=== PATIENT | female | born 1960 | race Caucasian/White ===

== ENCOUNTER 2020-06-03 01:13 | Observation (INO) ==
[2020-06-03] MEDS ORDERED: Aspirin 81 MG TAB.CHEW PO ONE (01:29)
[2020-06-03 01:57] LABS: Basophils # 0.1 K/mcL (0.0-0.2); Basophils % 0.6 %; Eosinophils # 0.4 K/mcL (0.0-0.6); Eosinophils % 4.7 %; Hematocrit 40.6 % (35.3-44.9); Hemoglobin 13.4 g/dL (11.5-15.4); Immature Granulocytes % 0.3 % (0-4); Lymphocytes % 33.4 %; Mean Corpuscular Hemoglobin 28.5 pg (28.0-33.3); Mean Corpuscular Volume 86.4 fL (83.0-100.0); Mean Platelet Volume 10.3 fL (9.4-12.4); Monocytes # 0.9 K/mcL (0.0-1.3); Monocytes % 9.7 %; Neutrophils # 4.6 K/mcL (1.6-8.9); Platelet Count 265 K/mcL (140-400); Red Cell Distribution Width 12.8 % (11.5-14.5); Segmented Neutrophils % 51.3 %; White Blood Count 8.9 K/mcL (4.3-11.1)
[2020-06-03] MEDS ORDERED: Nitroglycerin 0.4 MG TAB.SUBL SL PRN (02:13)
[2020-06-03 02:16] LABS: BUN/Creatinine Ratio 11 (6-26); Blood Urea Nitrogen 10 mg/dL (8-23); Calcium 9.2 mg/dL (8.6-10.3); Carbon Dioxide 27 mEq/L (23-29); Chloride 96 mEq/L (98-107); Glucose 156 mg/dL (70-105); Osmolality,Calculated 282 (280-300); Potassium 2.9 mEq/L (3.5-5.1); Sodium 135 mEq/L (136-145); eGFR For African Americans > 60 (> 60); eGFR For Non-African Americans > 60 (> 60)
[2020-06-03 02:17] LABS: Troponin I < 0.03 ng/mL (< 0.04)
[2020-06-03] MEDS ORDERED: Azithromycin 500 MG in 0.9 % Sodium Chloride 250 ML IVPB ONE (02:47)
[2020-06-03] MEDS ORDERED: cefTRIAXone 1,000 MG in Water for inj. (sterile) 10 ML IVP ONE (02:47)
[2020-06-03] MEDS ORDERED: Naloxone 0.4 MG/ML INJ IVP PRN (03:46)
[2020-06-03] MEDS ORDERED: Mag Hydrox/Al Hydrox/Simeth 30 ML UDC PO PRN (03:46)
[2020-06-03] MEDS ORDERED: Acetaminophen 325 MG TABLET PO PRN (03:46)
[2020-06-03] MEDS ORDERED: Morphine Sulfate 2 MG/ML SYRINGE IVP PRN (03:49)
[2020-06-03] MEDS ORDERED: Perflutren Lipid Microsphere 1.3 ML in 0.9 % Sodium Chloride 8.7 ML IVP PRN (03:51)
[2020-06-03] MEDS ORDERED: hydrOXYzine pamoate 25 MG CAPSULE PO PRN (03:52)
[2020-06-03] MEDS ORDERED: Ipratropium/Albuterol Neb 3 ML IH PRN (03:57)
[2020-06-03 03:59] LABS: Adenovirus Not Detected (Not Detect); Bordetella Pertussis Not Detected (Not Detect); Chlamydophila pneumoniae Not Detected (Not Detect); Coronavirus 229E Not Detected (Not Detect); Coronavirus HKU1 Not Detected (Not Detect); Coronavirus NL63 Not Detected (Not Detect); Coronavirus OC43 Not Detected (Not Detect); Human Metapneumovirus Not Detected (Not Detect); Human Rhinovirus/Enterovirus Not Detected (Not Detect); Influenza A Subtype 2009 H1 Not Detected (Not Detect); Influenza B Not Detected (Not Detect); Mycoplasma pneumoniae Not Detected (Not Detect); Parainfluenza Virus 1 Not Detected (Not Detect); Parainfluenza Virus 2 Not Detected (Not Detect); Parainfluenza Virus 3 Not Detected (Not Detect); Parainfluenza Virus 4 Not Detected (Not Detect); Respiratory Syncytial Virus Not Detected (Not Detect)
[2020-06-03] MEDS: Insulin LISPRO 300 UNITS/3 ML VIAL SQ SCH ×2 (05:58→12:00)
[2020-06-03] MEDS ORDERED: *HR* Heparin 5,000 UNIT/ML VIAL SQ SCH (06:00)
[2020-06-03 06:09] LABS: Magnesium 1.7 mg/dL (1.6-2.6)
[2020-06-03 06:10] LABS: Troponin I < 0.03 ng/mL (< 0.04)
[2020-06-03 06:23] LABS: Thyroid Stimulating Hormone 2.174 mcIU/mL (0.340-5.600)
[2020-06-03] MEDS ORDERED: Regadenoson 0.4 MG/5 ML SYRINGE IVP ONE (06:44)
[2020-06-03] MEDS ORDERED: Benzonatate 100 MG CAPSULE PO PRN (06:44)
[2020-06-03] MEDS ORDERED: Doxycycline 100 MG CAPSULE PO SCH (09:00)
[2020-06-03] MEDS ORDERED: Aspirin Enteric Coated 81 MG Tablet PO SCH (09:00)
[2020-06-03] MEDS ORDERED: Cholecalciferol (D-3) 1,000 UNIT (25MCG) TABLET PO SCH (09:00)
[2020-06-03] MEDS ORDERED: amLODIPine 5 MG TABLET PO SCH (09:00)
[2020-06-03] MEDS ORDERED: ARIPiprazole 5 MG TABLET PO SCH (09:00)
[2020-06-03] MEDS ORDERED: lisinopriL 5 MG TABLET PO SCH (09:00)
[2020-06-03 13:07] VITALS: BP 159/81
[2020-06-03 14:31] LABS: BUN/Creatinine Ratio 14 (6-26); Blood Urea Nitrogen 10 mg/dL (8-23); Calcium 8.9 mg/dL (8.6-10.3); Carbon Dioxide 31 mEq/L (23-29); Chloride 99 mEq/L (98-107); Glucose 144 mg/dL (70-105); Osmolality,Calculated 282 (280-300); Potassium 3.5 mEq/L (3.5-5.1); Sodium 135 mEq/L (136-145); eGFR For African Americans > 60 (> 60); eGFR For Non-African Americans > 60 (> 60)
== END 2020-06-03 15:40 | disposition home or self-care (01) ==
LOC: EMEROOARM 01:13 → 3BNU 01:13 → SUATTDRO 04:03 → 3BNU 04:35
PROVIDERS: ADMIT Family Medicine; ATTEND Family Medicine